=== PATIENT | female | born 1945 | race Caucasian/White ===

== ENCOUNTER 2021-04-25 10:59 | Emergency (ER) | payer MEDICARE, SELFPAY ==
[2021-04-25 12:44] VITALS: BP 142/62; PULSE 73; RESP 16; TEMP 36.4; O2SAT 100
--- NOTE | 2021-04-25 13:46 | ED.GENADULT ---
HPI - General Adult General Chief complaint: Urogenital-Female Stated complaint: uti complaint Source: patient Mode of arrival: ambulatory Limitations: no limitations History of Present Illness HPI narrative: Patient presents for evaluation of urinary symptoms that started this morning. She reports vaginal pressure, urinary hesitancy, urgency, frequency and left lower back pain. She has experienced nausea without vomiting. No fever, chills or hematuria. She has had similar symptoms in the past with UTI. No hx of kidney stones. She states that she was having a difficult time passing urine today until her arrival here. No additional complaints or concerns. Related Data Home Medications Medication Instructions Recorded Confirmed latanoprost 1 drp EACH EYE BID 04/25/21 04/25/21 lisinopril 10 mg PO DAILY 04/25/21 04/25/21 lorazepam 1 mg PO TID PRN 04/25/21 04/25/21 timolol maleate 1 drp EACH EYE DAILY 04/25/21 04/25/21 Allergies Allergy/AdvReac Type Severity Reaction Status Date / Time Sulfa (Sulfonamide Allergy Intermediate Rash Verified 04/25/21 13:03 Antibiotics) Penicillins Allergy Mild Other Verified 04/25/21 13:24 Review of Systems Review of Systems: CONSTITUTIONAL: Denies fever, chills, or sweats. EYES: Denies visual changes, redness, or discharge. ENT: Denies rhinorrhea, congestion, sore throat, or otalgia. CARDIOVASCULAR: Denies chest pain, palpitations, or edema. RESPIRATORY: Denies cough or dyspnea. GASTROINTESTINAL: Denies abdominal pain, nausea, vomiting, or diarrhea. GENITOURINARY: Denies dysuria or hematuria. SKIN: Denies rash or itching. MUSCULOSKELETAL: Reports left lower back pain. Denies joint pain, or myalgia. NEUROLOGIC: Denies headache, numbness, dizziness, or weakness. PSYCHIATRIC: Denies anxiety or depression. [facility] Past Medical History Medical History (Updated 04/25/21 @ 13:55 by ALAYNA Logan, MAUREEN) Diabetes Hypertension Vitamin D deficiency Surgical History Surgical History No pertinent past surgical history Family History Family History Mother Diabetes mellitus Father No pertinent past medical history Social History Social History Substance use: never Living arrangements: with family Gender identity (if verbalized by the patient): Female Sexual Orientation (if Verbalized by the Patient): Straight or Heterosexual Spiritual care concerns: No Exam Narrative: GENERAL: Well-appearing, well-nourished, and in no acute distress. HEAD: Normocephalic, atraumatic. EYES: PERRLA and EOMI. ENT: Nares clear, no rhinorrhea or epistaxis. Mucous membranes moist. Oropharynx without tonsillar hypertrophy exudate or other lesions. Bilateral TMs pearly kim nonbulging NECK: Supple. No adenopathy or masses. No carotid bruits or JVD CHEST: Clear to auscultation. No respiratory distress. No wheezes rales or rhonchi HEART: Regular rate and rhythm. No murmur heard. Normal peripheral pulses. ABDOMEN: Soft, nondistended, normal active bowel sounds. Mild suprapubic tenderness without rebound or guarding. No CVA tenderness EXTREMITIES: Normal range of motion. No edema. SKIN: Warm, dry, no rash. NEURO: No focal deficits. Alert and oriented x3. PSYCH: Normal mood and affect. Course Course Emergency Course: This is a 76-year-old female who presented complaints of urinary symptoms. Of note on her urine there is only 1+ leukocytes and 1+ blood. I suspect that perhaps she had a kidney stone and has some renal colic. She does not have pain here and is able to pass urine. We can cover her with abx due to leukocytes and reported history of UTI feeling similar to current symptoms. She should monitor for pain or vomiting and go to ER for further evaluation of she experiences those symptoms. Advised close
[2021-04-25] MEDS: cefTRIAXone 500 MG VIAL IM (13:54)
== END 2021-04-25 14:20 | disposition home or self-care (01) ==
PROVIDERS: Emergency Provider Nurse Practitioner
DX: R35.0 Frequency of micturition (principal); R39.15 Urgency of urination; R39.11 Hesitancy of micturition; M54.50 Low back pain, unspecified; E11.9 Type 2 diabetes mellitus without complications; I10 Essential (primary) hypertension
CPT/HCPCS: 81003; 87086; 87147; 87181; 87186; 96372; 99213; G0463; J0696